=== PATIENT | male | born 1995 | race Caucasian/White ===

== ENCOUNTER 2024-05-24 17:41 | Observation (INO) | payer OTHER ==
[2024-05-24 18:40] LABS: Basophils # (A) 0.1 k/uL (0-0.2); Basophils % (A) 1 %; Eosinophils # (A) 0.1 k/uL (0-0.7); Eosinophils % (A) 1 %; HGB 14.7 gm/dL (13.0-17.5); Lymphocytes # (A) 1.5 k/uL (1.0-4.8); Lymphocytes % (A) 14 %; MCH 31.3 pg (25.0-35.0); MCHC 32.7 g/dL (31.0-37.0); MCV 95.6 fL (80.0-100.0); Mean Platelet Volume 8.1; Monocytes # (A) 1.2 k/uL (0-1.0); Monocytes % (A) 12 %; Neutrophils # (A) 7.2 k/uL (1.3-7.7); Neutrophils % (A) 71 %; Platelet Count 305 k/uL (150-450); RBC 4.71 m/uL (4.30-5.90); RDW 12.5 % (11.5-15.5); WBC 10.2 k/uL (3.8-10.6)
--- NOTE | 2024-05-24 18:47 | XR ---
EXAMINATION TYPE: XR chest 2V DATE OF EXAM: 05/24/2024 6:42 PM CLINICAL INDICATION:Male, 29 years old with history of Chest Pain; PHH COMPARISON: Chest radiographs from TECHNIQUE: XR chest 2V Frontal and lateral views of the chest. FINDINGS: EKG wires project over the chest. Lungs/Pleura: There is no evidence of pleural effusion, focal consolidation, or pneumothorax. Pulmonary vascularity: Unremarkable. Heart/mediastinum: Cardiomediastinal silhouette is unremarkable. Musculoskeletal: No acute osseous pathology. Other findings: None Lines/Tubes: IMPRESSION: No acute cardiopulmonary disease/process.
[2024-05-24 18:50] LABS: Amphetamine Screen,Urine Not Detected (NotDetected); Barbiturate Screen,Urine Not Detected (NotDetected); Benzodiazepines Screen,Urine Not Detected (NotDetected); Cocaine Screen,Urine Not Detected (NotDetected); Methadone Screen, Urine Not Detected (NotDetected); Opiate Screen,Urine Not Detected (NotDetected); Oxycodone Screen, Urine Not Detected (NotDetected); Phencyclidine Screen,Urine Not Detected (NotDetected); Tricyclic Antidepressant,Urine Not Detected (NotDetected); Urn Cannabinoid Scrn Not Detected (NotDetected)
[2024-05-24 18:56] LABS: INR 1.1 (<1.2); Prothrombin Time 11.5 sec (10.0-12.5)
[2024-05-24 19:13] LABS: ALT 16 U/L (4-49); AST 22 U/L (17-59); African American GFR (CKD) >90 (>60 ml/min/1.73 sqM); Albumin 4.6 g/dL (3.5-5.0); Alcohol <10 mg/dL; Alkaline Phosphatase 40 U/L (38-126); Anion Gap 7 mmol/L; Blood Urea Nitrogen 17 mg/dL (9-20); Calcium 9.4 mg/dL (8.4-10.2); Carbon Dioxide 24 mmol/L (22-30); Chloride 107 mmol/L (98-107); Creatine Kinase 69 U/L (55-170); Glucose 85 mg/dL (74-99); Lipase 76 U/L (23-300); Magnesium 1.9 mg/dL (1.6-2.3); Non-African American GFR(CKD) >90 (>60 ml/min/1.73 sqM); Potassium 4.1 mmol/L (3.5-5.1); Sodium 138 mmol/L (137-145); Total Bilirubin 0.5 mg/dL (0.2-1.3); Total Protein 6.9 g/dL (6.3-8.2)
--- NOTE | 2024-05-24 19:17 | ED ---
General Adult HPI - General Chief complaint: Alcohol Stated complaint: anxiety Time Seen by Provider: 05/24/24 18:12 Source: patient, EMS, RN notes reviewed Mode of arrival: EMS Limitations: no limitations - History of Present Illness Initial comments: 29-year-old male with a history of alcohol abuse as well as drug abuse but who states he has been off this for 3 months who states he started developing retrosternal left-sided chest pain and radiated down his left arm while he was at work today 8/10 severity could not really qualify by what it felt like he still acid little over 2 minutes. He also states that during this time he had voices in his head which she has had periodically since he came off the alcohol and drugs saying that he was having a heart attack he felt that this was in his head and in his chest. Of note there is a family history of an uncle that had a heart attack at the age of 30. He is feeling better now in the emergency department no other current complaints no other modifying factors - Related Data Allergies Allergy/AdvReac Type Severity Reaction Status Date / Time No Known Allergies Allergy Verified 05/24/24 17:59 Review of Systems ROS Statement: Those systems with pertinent positive or pertinent negative responses have been documented in the HPI. ROS Other: All systems not noted in ROS Statement are negative. Past Medical History Past Medical History: No Reported History History of Any Multi-Drug Resistant Organisms: None Reported Past Surgical History: Adenoidectomy Smoking Status: Current every day smoker, Vaper Past Alcohol Use History: Heavy Past Drug Use History: None Reported General Exam - General Exam Comments Initial Comments: Is a well-developed well-nourished awake alert oriented x 4 male Limitations: no limitations General appearance: alert, anxious Head exam: Present: atraumatic, normocephalic, normal inspection Eye exam: Present: normal appearance, PERRL, EOMI. Absent: scleral icterus, conjunctival injection, periorbital swelling ENT exam: Present: normal exam, mucous membranes moist Neck exam: Present: normal inspection, full ROM, other (Better JVD or bruits). Absent: tenderness, meningismus, lymphadenopathy Respiratory exam: Present: normal lung sounds bilaterally. Absent: respiratory distress, wheezes, rales, rhonchi, stridor Cardiovascular Exam: Present: regular rate, normal rhythm, normal heart sounds. Absent: systolic murmur, diastolic murmur, rubs, gallop, clicks GI/Abdominal exam: Present: soft, normal bowel sounds. Absent: distended, tenderness, guarding, rebound, rigid Extremities exam: Present: normal inspection, full ROM, normal capillary refill. Absent: tenderness, pedal edema, joint swelling, calf tenderness Back exam: Present: normal inspection Neurological exam: Present: alert, oriented X3, CN II-XII intact Psychiatric exam: Present: normal affect, normal mood Skin exam: Present: warm, dry, intact, normal color. Absent: rash Course Vital Signs 05/24/24 17:46 Temperature 98.3 F Pulse Rate 66 Respiratory 18 Rate Blood Pressure 124/88 O2 Sat by Pulse 98 Oximetry Medical Decision Making - Medical Decision Making I did reevaluate the patient several occasions he has had no further chest pain. He still having some voices "" in his head I did discuss the case with Dr. Finn the patient will be admitted with a rule out for cardiac disease and psychiatric evaluation in the a.m. Was pt. sent in by a medical professional or institution (, PA, LAST INSERTER, urgent care, hospital, or long-term...) When possible be specific @ -No Did you speak to anyone other than the patient for history (EMS, parent, family, police, friend...)? What history was obtained from this source @ -EMS personnel Did you review nursing and triage notes (agree or disagree)? Why? @ -I reviewed and agree with nursing and triage notes Were old charts reviewed (outside hosp., previous admission, EMS record, old EKG, old radiological studies, urgent care reports/EKG's, long-term records)? Report findings @ -No old charts were reviewed Differential Diagnosis (chest pain, altered mental status, abdominal pain women, abdominal pain men, vaginal bleeding, weakness, fever, dyspnea, syncope, headache, dizziness, GI bleed, back pain, seizure, CVA, palpatations, mental health, musculoskeletal)? @ -Pain, psychosis EKG interpreted by me (3pts min.). @ -As above EKG interpreted by me normal sinus rhythm at 62 ID interval 143 QRS duration 112 QT/QTc 388/394 possible right ventricular conduction delay X-rays interpreted by me (1pt min.). @ -Interpreted by me no evidence of acute processes CT interpreted by me (1pt min.). @ -None done U/S interpreted by me (1pt. min.). @ -None done What testing was considered but not performed or refused? (CT, X-rays, U/S, labs)? Why? @ -None What meds were considered but not given or refused? Why? @ -None Did you discuss the management of the patient with other professionals (professionals i.e. Dr., PA, LAST INSERTER, lab, RT, psych nurse, manager social responsibility, pediatric speech language pathologist, teacher, licensed loan officer assistant, heel caser)? Give summary @ -No Was smoking cessation discussed for >3mins.? @ -No Was critical care preformed (if so, how long)? @ -No Were there social determinants of health that impacted care today? How? (Homelessness, low income, unemployed, alcoholism, drug addiction, transportation, low edu. Level, literacy, decrease access to med. care, shelter, rehab)? @ -No Was there de-escalation of care discussed even if they declined (Discuss DNR or withdrawal of care, Hospice)? DNR status @ -No What co-morbidities impacted this encounter? (DM, HTN, Smoking, COPD, CAD, Cancer, CVA, ARF, Chemo, Hep., AIDS, mental health diagnosis, sleep apnea, morbid obesity)? @ -Alcohol and drug abuser, family history of heart disease at his age] Was patient admitted / discharged? Hospital course, mention meds given and route, prescriptions, significant lab abnormalities, going to OR and other pertinent info. @ -Hospital course was admitted to this facility for inpatient evaluation Undiagnosed new problem with uncertain prognosis? @ -No Drug Therapy requiring intensive monitoring for toxicity (Heparin, Nitro, Insulin, Cardizem)? @ -No Were any procedures done? @ -No Diagnosis/symptom? @ -Chest pain, psychosis Acute, or Chronic, or Acute on Chronic? @ -Acute Uncomplicated (without systemic symptoms) or Complicated (systemic symptoms)? @ -Default Side effects of treatment? @ -No Exacerbation, Progression, or Severe Exacerbation? @ -No Poses a threat to life or bodily function? How? (Chest pain, USA, ND, pneumonia, PE, COPD, DKA, ARF, appy, cholecystitis, CVA, Diverticulitis, Homicidal, Suicidal, threat to staff... and all critical care pts) @ -Chest pain - Lab Data Result diagrams: 07/27/24 18:12 05/24/24 18:12 Lab Results 05/24/24 05/24/24 05/24/24 Range/Units 18:12 18:12 18:12 WBC 10.2 (3.8-10.6) k/uL RBC 4.71 (4.30-5.90) m/uL Hgb 14.7 (13.0-17.5) gm/dL Hct 45.0 (39.0-53.0) % MCV 95.6 (80.0-100.0) fL MCH 31.3 (25.0-35.0) pg MCHC 32.7 (31.0-37.0) g/dL RDW 12.5 (11.5-15.5) % Plt Count 305 (150-450) k/uL MPV 8.1 Neutrophils % 71 % Lymphocytes % 14 % Monocytes % 12 % Eosinophils % 1 % Basophils % 1 % Neutrophils # 7.2 (1.3-7.7) k/uL Lymphocytes # 1.5 (1.0-4.8) k/uL Monocytes # 1.2 H (0-1.0) k/uL Eosinophils # 0.1 (0-0.7) k/uL Basophils # 0.1 (0-0.2) k/uL PT 11.5 (10.0-12.5) sec INR 1.1 (<1.2) APTT 26.0 (22.0-30.0) sec D-Dimer 0.22 (<0.60) mg/L FEU Sodium (137-145) mmol/L Potassium (3.5-5.1) mmol/L Chloride (98-107) mmol/L Carbon Dioxide (22-30) mmol/L Anion Gap mmol/L BUN (9-20) mg/dL Creatinine (0.66-1.25) mg/dL Est GFR (CKD-EPI)AfAm (>60 ml/min/1.73 sqM) Est GFR (CKD-EPI)NonAf (>60 ml/min/1.73 sqM) Glucose (74-99) mg/dL Calcium (8.4-10.2) mg/dL Magnesium (1.6-2.3) mg/dL Total Bilirubin (0.2-1.3) mg/dL AST (17-59) U/L ALT (4-49) U/L Alkaline Phosphatase (38-126) U/L Ammonia (<30) umol/L Creatine Kinase (55-170) U/L Troponin I (0.000-0.034) ng/mL NT-Pro-B Natriuret Pep pg/mL Total Protein (6.3-8.2) g/dL Albumin (3.5-5.0) g/dL Lipase (23-300) U/L TSH (0.465-4.680) mIU/L Urine Opiates Screen Not Detected (NotDetected) Ur Oxycodone Screen Not Detected (NotDetected) Urine Methadone Screen Not Detected (NotDetected) Ur Barbiturates Screen Not Detected (NotDetected) U Tricyclic Antidepress Not Detected (NotDetected) Ur Phencyclidine Scrn Not Detected (NotDetected) Ur Amphetamines Screen Not Detected (NotDetected) U Methamphetamines Scrn Not Detected (NotDetected) U Benzodiazepines Scrn Not Detected (NotDetected) Urine Cocaine Screen Not Detected (NotDetected) U Marijuana (THC) Screen Not Detected (NotDetected) Serum Alcohol mg/dL 05/24/24 05/24/24 05/24/24 Range/Units 18:12 18:12 18:12 WBC (3.8-10.6) k/uL RBC (4.30-5.90) m/uL Hgb (13.0-17.5) gm/dL Hct (39.0-53.0) % MCV (80.0-100.0) fL MCH (25.0-35.0) pg MCHC (31.0-37.0) g/dL RDW (11.5-15.5) % Plt Count (150-450) k/uL MPV Neutrophils % % Lymphocytes % % Monocytes % % Eosinophils % % Basophils % % Neutrophils # (1.3-7.7) k/uL Lymphocytes # (1.0-4.8) k/uL Monocytes # (0-1.0) k/uL Eosinophils # (0-0.7) k/uL Basophils # (0-0.2) k/uL PT (10.0-12.5) sec INR (<1.2) APTT (22.0-30.0) sec D-Dimer (<0.60) mg/L FEU Sodium 138 (137-145) mmol/L Potassium 4.1 (3.5-5.1) mmol/L Chloride 107 (98-107) mmol/L Carbon Dioxide 24 (22-30) mmol/L Anion Gap 7 mmol/L BUN 17 (9-20) mg/dL Creatinine 0.75 (0.66-1.25) mg/dL Est GFR (CKD-EPI)AfAm >90 (>60 ml/min/1.73 sqM) Est GFR (CKD-EPI)NonAf >90 (>60 ml/min/1.73 sqM) Glucose 85 (74-99) mg/dL Calcium 9.4 (8.4-10.2) mg/dL Magnesium 1.9 (1.6-2.3) mg/dL Total Bilirubin 0.5 (0.2-1.3) mg/dL AST 22 (17-59) U/L ALT 16 (4-49) U/L Alkaline Phosphatase 40 (38-126) U/L Ammonia <9 (<30) umol/L Creatine Kinase 69 (55-170) U/L Troponin I <0.012 (0.000-0.034) ng/mL NT-Pro-B Natriuret Pep <20 pg/mL Total Protein 6.9 (6.3-8.2) g/dL Albumin 4.6 (3.5-5.0) g/dL Lipase 76 (23-300) U/L TSH 1.230 (0.465-4.680) mIU/L Urine Opiates Screen (NotDetected) Ur Oxycodone Screen (NotDetected) Urine Methadone Screen (NotDetected) Ur Barbiturates Screen (NotDetected) U Tricyclic Antidepress (NotDetected) Ur Phencyclidine Scrn (NotDetected) Ur Amphetamines Screen (NotDetected) U Methamphetamines Scrn (NotDetected) U Benzodiazepines Scrn (NotDetected) Urine Cocaine Screen (NotDetected) U Marijuana (THC) Screen (NotDetected) Serum Alcohol <10 mg/dL Disposition Clinical Impression: Chest pain, Psychoses Disposition: ADMITTED IP TO THIS HOSP Condition: Stable Referrals: None,Stated [Primary Care Provider] - 1-2 days Time of Disposition: 20:58 Decision Date: 05/24/24 Decision Time: 20:58
[2024-05-24 19:21] LABS: NT-Pro-B-Type Natriuretic Pept <20 pg/mL
[2024-05-24] MEDS ORDERED: NALOXONE 0.4 MG/ML 1 ML VIAL IV PRN (20:58)
[2024-05-24] MEDS ORDERED: LORazepam 2 MG/ML INJ IV PRN ×3 (21:22)
[2024-05-25] MEDS ORDERED: ACETAMINOPHEN TAB 325 MG TAB PO PRN (01:10)
[2024-05-25] MEDS: ACETAMINOPHEN TAB 325 MG TAB PO PRN (01:16)
--- NOTE | 2024-05-25 03:02 | P.HPIM ---
History of Present Illness H&P Date: 05/24/24 Patient is a 29-year-old male with a PMH of polysubstance and alcohol abuse who presents to the emergency room with complaints of chest discomfort, anxiety, and hallucinations. The patient reports that he was abusing methamphetamines, marijuana, and drinking excessively for several years and decided to get sober roughly 3 months ago. He has since moved in with his father and notes that he has gradually cut down from drinking a 12 pack of beer daily down to only 1 beer per night. He also reports not having used any hard substances such as methamphetamines for at least the past 3 months. Notes that ever since he decided to get clean, that he has been experiencing this gradually worsening a nxiety and has also developed auditory and some visual hallucinations. The patient endorses people having conversations and also speaking to him, telling him to do specific things and also at times telling him to harm himself. 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 He reports that the discomfort lasted only for few minutes and then resolved completely and he feels at his baseline at the time of interview. Patient denies any history of alcohol withdrawals and reports that his last drink was last night which was a single beer. Also reports associated lightheadedness at the time of the episode with some nausea without vomiting. Denies fever, chills, cough, abdominal pain, diarrhea. Patient specifically denied suicidal ideation but states that the voices have been telling him to harm himself. EKG in the emergency room revealed sinus rhythm at [address]/T wave changes noted as reviewed by me. Chest x-ray was unremarkable. Laboratory evaluation revealed troponin less than 0.012, proBNP less than 20, urine toxicology unremarkable, with WBC count 10.2 and hemoglobin 14.7. ED documentation reviewed and case discussed with ED provider. Review of systems: Pertinent positives and negatives as discussed in HPI, a complete review of systems was performed and all other systems are negative. Physical examination: Vital signs reviewed General: non toxic, no distress, appears at stated age, normal weight Derm: no unusual rashes/lesions, warm Head: atraumatic, normocephalic, symmetric Eyes: EOMI, no lid lag, anicteric sclera, pupils equal round reactive to light ENT: Nose and ears atraumatic Neck: No cervical lymphadenopathy, trachea midline, supple Mouth: no lip lesion, mucus membranes moist Cardiovascular: S1S2 reg, no murmur, positive dorsalis pedis pulse bilateral, no edema Lungs: CTA bilateral, no rhonchi, no rales, no accessory muscle use Abdominal: soft, nontender to palpation, no guarding Ext: muscle strength 5 out of 5 in all 4 extremities grossly, no gross muscle atrophy, no contractures, Neuro: CN II-XI grossly intact, no gross focal neuro deficits Psych: Alert, oriented, appropriate affect Assessment: Atypical chest pain, suspect due to anxiety Auditory and visual hallucinations History of polysubstance abuse including methamphetamines and alcohol Imaging: EKG in the emergency room revealed sinus rhythm at [address]/T wave changes noted as reviewed by me. Chest x-ray was unremarkable. Data Review: Laboratory evaluation revealed troponin less than 0.012, proBNP less than 20, urine toxicology unremarkable, with WBC count 10.2 and hemoglobin 14.7. Plan: Psychiatry consulted Cardiac monitoring Trend troponin CIWA protocol for now DVT prophylaxis: Lovenox Subq The patient is admitted with an anticipated [] than 2 midnight stay for eval uation of [] CODE STATUS: Full Code Discussed with: Patient Anticipated discharge place: Home Past Medical History Past Medical History: No Reported History History of Any Multi-Drug Resistant Organisms: None Reported Past Surgical History: Adenoidectomy Smoking Status: Current some day smoker - Past Family History Father Additional Family Medical History / Comment(s): anxiety Mother Family Medical History: Asthma Additional Family Medical History / Comment(s): RLS Sister(s) Additional Family Medical History / Comment(s): has 3 sisters one sister age 25 hx bipolar, add Medications and Allergies Allergies Allergy/AdvReac Type Severity Reaction Status Date / Time No Known Allergies Allergy Verified 05/24/24 17:59 Physical Exam Vitals: Vital Signs Temp Pulse Pulse Resp BP BP Pulse Ox 05/24/24 23:35 97.9 F 54 L 16 113/76 97 05/24/24 23:11 98.4 F 57 L 16 114/78 97 05/24/24 22:00 59 L 17 105/93 96 05/24/24 21:00 57 L 16 118/80 98 05/24/24 17:46 98.3 F 66 18 124/88 98 Intake and Output 05/24/24 05/24/24 05/25/24 14:59 22:59 06:59 Intake Total 120 Balance 120 Intake: Oral 120 Other: # Voids 1 Weight 73.028 kg 73.028 kg Results CBC & Chem 7: 05/24/24 18:12 05/24/24 18:12 Labs: Abnormal Lab Results - Last 24 Hours (Table) 05/24/24 Range/Units 18:12 Monocytes # 1.2 H (0-1.0) k/uL
[2024-05-25] MEDS: ENOXAPARIN 40 MG/0.4 ML SYRINGE SQ SCH (08:39)
--- NOTE | 2024-05-25 14:14 | P.PN ---
Subjective Progress Note Date: 05/25/24 Hospital course Patient is a 29-year-old male with a PMH of polysubstance and alcohol abuse who presents to the emergency room with complaints of chest discomfort, anxiety, and hallucinations. The patient reports that he was abusing methamphetamines, marijuana, and drinking excessively for several years and decided to get sober roughly 3 months ago. He has since moved in with his father and notes that he has gradually cut down from drinking a 12 pack of beer daily down to only 1 beer per night. He also reports not having used any hard substances such as methamphetamines for at least the past 3 months. Notes that ever since he decided to get clean, that he has been experiencing this gradually worsening anxiety and has also developed auditory and some visual hallucinations. The patient endorses people having conversations and also speaking to him, telling him to do specific things and also at times telling him to harm himself. 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 He reports that the discomfort lasted only for few minutes and then resolved completely and he feels at his baseline at the time of interview. Patient denies any history of alcohol withdrawals and reports that his last drink was last night which was a single beer. Also reports associated lightheadedness at the time of the episode with some nausea without vomiting. Denies fever, chills, cough, abdominal pain, diarrhea. Patient specifically denied suicidal ideation but states that the voices have been telling him to harm himself. EKG in the emergency room revealed sinus rhythm at [address]/T wave changes noted as reviewed by me. Chest x-ray was unremarkable. Laboratory evaluation revealed troponin less than 0.012, proBNP less than 20, urine toxicology unremarkable, with WBC count 10.2 and hemoglobin 14.7. Subjective Patient seen this morning. 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 Psych - Calm and cooperative Assessment and plan Atypical chest pain Suspect due to anxiety Psych consult Auditory and visual hallucinations Psych consult History of polysubstance abuse and alcohol abuse Patient states that he quit doing drugs about a month ago and has been cutting down on his alcohol and now only drinks 1 beer a day CIWA protocol UDS was negative DVT prophylaxis: Lovenox Objective - Vital Signs Vital signs: Vital Signs Temp 98.2 F 05/25/24 07:00 Pulse 79 05/25/24 07:00 Resp 18 05/25/24 07:00 BP 92/58 05/25/24 07:00 Pulse Ox 98 05/25/24 07:00 FiO2 Intake & Output 05/24/24 05/25/24 05/25/24 18:59 06:59 18:59 Intake Total 360 Output Total 1 Balance 359 Weight 73.028 kg 73.028 kg Intake: Oral 360 Output: Urine 1 Other: # Voids 1 - Labs CBC & Chem 7: 05/24/24 18:12 05/24/24 18:12 Labs: Abnormal Lab Results - Last 24 Hours (Table) 05/24/24 Range/Units 18:12 Monocytes # 1.2 H (0-1.0) k/uL
[2024-05-25 14:43] VITALS: BP 110/75; PULSE 55; RESP 16; TEMP 98.1
--- NOTE | 2024-05-25 15:20 | P.DS ---
Providers Date of admission: 05/24/24 20:58 Attending physician: Ashleigh Finn MD Consults: 05/24/24 20:58 Consult Physician Routine Consulting Provider: Mitchell Lebron Consult Reason/Comments: Hearing voices Do you want consulting provider notified?: Yes, Notify in am Primary care physician: Stated None Hospital Course: Hospital course Patient is a 29-year-old male with a PMH of polysubstance and alcohol abuse who presents to the emergency room with complaints of chest discomfort, anxiety, and hallucinations. The patient reports that he was abusing methamphetamines, mar ijuana, and drinking excessively for several years and decided to get sober roughly 3 months ago. He has since moved in with his father and notes that he has gradually cut down from drinking a 12 pack of beer daily down to only 1 beer per night. He also reports not having used any hard substances such as methamphetamines for at least the past 3 months. Notes that ever since he decided to get clean, that he has been experiencing this gradually worsening anxiety and has also developed auditory and some visual hallucinations. The patient endorses people having conversations and also speaking to him, telling him to do specific things and also at times telling him to harm himself. 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 He reports that the discomfort lasted only for few minutes and then resolved completely and he feels at his baseline at the time of interview. Patient denies any history of alcohol withdrawals and reports that his last drink was last night which was a single beer. Also reports associated lightheadedness at the time of the episode with some nausea without vomiting. Denies fever, chills, cough, abdominal pain, diarrhea. Patient specifically denied suicidal ideation but states that the voices have been telling him to harm himself. EKG in the emergency room revealed sinus rhythm at [address]/T wave changes noted as reviewed by me. Chest x-ray was unremarkable. Laboratory evaluation revealed troponin less than 0.012, proBNP less than 20, urine toxicology unremarkable, with WBC count 10.2 and hemoglobin 14.7. The following day patient was seen by psychiatry who recommended U. Patient medically stable for discharge to [facility]. 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 Psych - Calm and cooperative Discharge diagnosis Atypical chest pain likely due to anxiety Auditory and visual hallucination History of polysubstance abuse and alcohol abuse I spent a total of 33 minutes with this discharge Patient Condition at Discharge: Stable Plan - Discharge Summary New Discharge Prescriptions: Continue Nicotine 21Mg/24Hr Patch [Habitrol] 1 patch TRANSDERM DAILY Discharge Medication List Nicotine 21Mg/24Hr Patch [Habitrol] 1 patch TRANSDERM DAILY 05/25/24 [History] Follow up Appointment(s)/Referral(s): None,Stated [Primary Care Provider] - 1-2 days Discharge Disposition: TRANSFER TO PSYCH HOSP/UNIT
--- NOTE | 2024-05-25 15:35 | P.CN ---
Psychiatric Consult - . Consult date: 05/25/24 Consult:: 05/25/24 15:22 IDENTIFYING DATA: This patient is a 29-year-old male REASON FOR REFERRAL: Psychiatry was consulted for auditory hallucination HISTORY OF PRESENT ILLNESS: The patient presented to the hospital due to chest pain. Patient states that he has been sober of numerous substances over the past few months. He stopped using methamphetamine 3 months ago, stopped using cannabis 1 week ago, and decreased alcohol consumption to one to 2 beer daily. He states that he has been feeling depressed and anxiety over the past 3 months. He also reports having auditory hallucinations over the past 2 months that are very bothersome and frequently disturb him from his train of thought. He states that he has also experienced command auditory hallucinations telling him to hurt himself. He states that the voices are causing him to have "rage of not knowing what to do?. He denies homicidal ideation. However he expresses that hearing the voices has caused him to have suicidal ideation without a plan. He also reports visual hallucinations of floaty's in front of him. He endorses paranoia and feels unsafe at times. He denies symptoms consistent with turner. Due to ongoing auditory hallucinations, patient reports difficulty with sustained sleep. She reports low energy during the daytime but fair appetite. PAST PSYCHIATRIC HISTORY: Patient does not have any psychiatric history and has never been hospitalized. He does not have any current outpatient mental health provider. He denies any history of suicide attempts. He denies ever having tried any psychotropic medications. PAST MEDICAL HISTORY: Past Medical History: No Reported History History of Any Multi-Drug Resistant Organisms: None Reported Past Surgical History: Adenoidectomy Smoking Status: Current some day smoker ALLERGIES: as per EMR. CHEMICAL DEPENDENCY HISTORY: Methamphetamine: Started with using 1 g per week. Has progressed to using eightball every 1-2 weeks for 3-6 months. Quit 3 months ago. Cannabis: Reports using 1/8 every few days and that he used to use 1 g per week. He states he tried using again 1 week ago. He reports having used since he was 14 years old. Alcohol: He was using 12-18 pack of beer daily. Has decreased his consumption to one to 2 beer daily recently. He states that he has never been to rehab. Does not attend Alcoholics Anonymous. FAMILY PSYCHIATRIC/SUBSTANCE USE HISTORY: Uncle with paranoid schizophrenia. Denies any family history of suicide attempts SOCIAL HISTORY: Patient is currently residing with his father. He states that he had a baby girl born in October who is living with the mother of the child. He states that the mother of the child (girlfriend) broke up with him 2 months ago. He also works for [employer]. MENTAL STATUS EXAM: General Appearance: Patient appears to be stated age is alert, pleasant, and cooperative. Patient appears to have poor hygiene and grooming wearing hospital gown with fair eye contact. Behavior: Patient is calmly lying in bed without any agitated behavior. Speech: Patient's speech is fluent and nonpressured. Mood/Affect: Patient reports their mood is "depressed", affect is congruent Suicidality/Homicidality: Patient denies homicidal ideation intent or plan. Suicidal ideation without a plan Perceptions: Patient denies any visual hallucinations and endorses auditory hallucinations Though content/process: There is no evidence of any delusional thought content and thought process is linear and goal-directed. Memory and concentration: AOX3, grossly intact for the purposes of this session. 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 Patient was agreeable with this. -Would recommend the following medication changes/additions: Start Seroquel 50 mg qHS for psychosis and mood -CIWA protocol with PRN Ativan for alcohol withdrawal per primary team. Continue to monitor vital signs. -Needs 1:1 sitter for safety -Cannot leave AMA at this time. Patient will need a petition and certification if attempting to leave AMA. -Metal Shaping Machine Operator spoke with patient about substance abuse and the harmful effects on medical and mental health, patient verbally understood and agreed. -When medically stable, patient is eligible for transfer to a psych bed when available. -Communicated plan to patient's nurse -Psychiatry will sign off at this time -Please contact with any questions.
[2024-05-25] MEDS ORDERED: QUEtiapine 50 MG TAB PO SCH (21:00)
== END 2024-05-25 18:05 ==
LOC: EC 17:41 → 6NMEDSUR 20:58
PROVIDERS: ADMIT Internal Medicine; ATTEND Internal Medicine
DX: R07.89 Other chest pain (principal); F29 Unspecified psychosis not due to a substance or known physiological condition; R45.851 Suicidal ideations; F41.9 Anxiety disorder, unspecified; F10.10 Alcohol abuse, uncomplicated; F12.10 Cannabis abuse, uncomplicated; F15.21 Other stimulant dependence, in remission; M79.602 Pain in left arm; R11.0 Nausea; R42 Dizziness and giddiness; F32.A Depression, unspecified; F17.290 Nicotine dependence, other tobacco product, uncomplicated; Z82.49 Family history of ischemic heart disease and other diseases of the circulatory system
CPT/HCPCS: 96372; 99285; 36415; 93005; 85379; 83880; 80053; 84443; 82140; 82550; 83690; 83735; 84484; 85025; 85610; 85730; 80306; 80320; 87635; 71046; G0378 ×2; J1650

== ENCOUNTER 2024-05-25 16:57 | Inpatient (IN) | payer OTHER ==
[2024-05-25] MEDS ORDERED: MAG HYDROX/AL HYDROX/SIMETH 355 ML BOTTLE PO PRN (18:38)
[2024-05-25] MEDS ORDERED: MAGNESIUM HYDROXIDE 2,400 MG/30 ML CUP PO PRN (18:38)
[2024-05-25] MEDS: QUEtiapine 50 MG TAB PO SCH (21:05)
[2024-05-25] MEDS: ACETAMINOPHEN TAB 325 MG TAB PO PRN (21:07)
[2024-05-25] MEDS: LORazepam 1 MG TAB PO PRN (21:10)
[2024-05-26] MEDS: NICOTINE 21MG/24HR PATCH TRANSDERM SCH (08:50)
[2024-05-26] MEDS: THIAMINE 100 MG TAB PO SCH (08:51)
[2024-05-26] MEDS: FOLIC ACID 1 MG TAB PO SCH (08:51)
[2024-05-26] MEDS: MULTIVITAMINS, THERA 1 EACH TAB PO SCH (08:51)
--- NOTE | 2024-05-26 09:51 | P.HP ---
Psychiatric H&P - . H&P Date: 05/26/24 History & Physical: Allergies Allergy/AdvReac Type Severity Reaction Status Date / Time No Known Allergies Allergy Verified 05/24/24 17:59 Vital Signs Temp 98.6 F 05/26/24 06:43 Pulse 48 L 05/26/24 06:43 Resp 16 05/26/24 06:43 BP 101/65 05/26/24 06:43 Pulse Ox 96 05/26/24 06:43 FiO2 Intake & Output 05/25/24 05/26/24 05/26/24 18:59 06:59 18:59 Weight 72.1 kg 05/26/24 09:50 Psychiatric Evaluation IDENTIFYING DATA: This patient is a 29-year-old male, who lives in [place], [place] with his father. HISTORY OF PRESENT ILLNESS: The patient presented to the hospital due to chest pain. Patient states that he has been sober of numerous substances over the past few months. He stopped using methamphetamine 3 months ago, stopped using cannabis 1 week ago, and decreased alcohol consumption to one to 2 beer daily. He states that he has been feeling depressed and anxiety over the past 3 months. He also reports having auditory hallucinations over the past 2 months that are very bothersome and frequently disturb him from his train of thought. He states that he has also experienced command auditory hallucinations telling him to hurt himself. He states that the voices are causing him to have "rage of not knowing what to do?. He denies homicidal ideation. However he expresses that hearing the voices has caused him to have suicidal ideation without a plan. He also re ports visual hallucinations of floaty's in front of him. He endorses paranoia and feels unsafe at times. He denies symptoms consistent with turner. Due to ongoing auditory hallucinations, patient reports difficulty with sustained sleep. She reports low energy during the daytime but fair appetite. PAST PSYCHIATRIC HISTORY: Patient does not have any psychiatric history and has never been hospitalized. He does not have any current outpatient mental health provider. He denies any history of suicide attempts. He denies ever having tried any psychotropic medications. Past Medical History: None significant. Drug and Alcohol abuse: Methamphetamine: Started with using 1 g per week. Has progressed to using eightball every 1-2 weeks for 3-6 months. Quit 3 months ago. Cannabis: Reports using 1/8 every few days and that he used to use 1 g per week. He states he tried using again 1 week ago. He reports having used since he was 14 years old. Alcohol: He was using 12-18 pack of beer daily. Has decreased his consumption to one to 2 beers daily recently. Family History Of Psychiatric disorder: Uncle with paranoid schizophrenia. Denies any family history of suicide attempts SOCIAL HISTORY: Patient is currently residing with his father. He states that he had a baby girl born in October who is living with the mother of the child. He states that the mother of the child (girlfriend) broke up with him 2 months ago. He also works for [employer]. MENTAL STATUS EXAM: General Appearance: Patient appears to be stated age is alert, pleasant, and cooperative. Patient appears to have poor hygiene and grooming wearing hospital gown with fair eye contact. Behavior: Patient is calmly lying in bed without any agitated behavior. Speech: Patient's speech is fluent and nonpressured. Mood/Affect: Patient reports their mood is "depressed", affect is congruent Suicidality/Homicidality: Patient denies homicidal ideation intent or plan. Suicidal ideation without a plan Perceptions: Patient denies any visual hallucinations and endorses auditory hallucinations Though content/process: There is no evidence of any delusional thought content and thought process is linear and goal-directed. Memory and concentration: AOX3, grossly intact for the purposes of this session. Can spell "WORLD" backwards Judgment and insight: Good. OTC: None Allergies: As per EMR. Diagnosis: Psychotic disorder, unspecified. R/O first episode of Schizophrenia Alcohol use disorder, severe Cannabis use disorder Stimulant use disorder, severe, in early remission Plan and Recommendations: Continue current Medications. Add Librium 25 mg po tid. Monitor MS and side effects of medications and adjust medications accordingly. Provide supportive psychotherapy. The patient provided psychoeducation and advised The patient provided Substance abuse counseling. Smoke cessation therapy. The patient to attend ambriz activities. Lipid Profile, HbA1c. Medication Consent with explanation of risk/benefits and side effects: Explained and obtained.
[2024-05-26 10:26] LABS: Chol/HDL Ratio 5.13 Ratio; LDL Cholesterol,Calculated 151.6 mg/dL (0.0-131.0); VLDL Calculation 19.14 mg/dL (5.00-40.00)
[2024-05-26] MEDS: chlordiazePOXIDE 25 MG CAP PO SCH (16:02)
[2024-05-26] MEDS: LORazepam 1 MG TAB PO PRN (21:08)
--- NOTE | 2024-05-27 02:58 | P.CONS ---
History of Present Illness - Reason for Consult Consult date: 05/27/24 - History of Present Illness The patient is a 29-year-old male with a PMH of polysubstance abuse who had initially presented to the emergency room with complaints of anxiety and chest discomfort. The patient was admitted to rule out ACS and was subsequently transferred to the mental health unit where he was seen and evaluated. Patient reports that he feels well and had no active complaints aside from a mild headache at the time of interview. Denied experiencing fever, chills, cough, nausea, vomiting, abdominal pain, diarrhea, chest pain, shortness of breath. Review of systems: Pertinent positives and negatives as discussed in HPI, a complete review of systems was performed and all other systems are negative. Physical examination: General: non toxic, no distress, appears at stated age, normal weight Derm: no unusual rashes/lesions, no unusual ecchymoses, warm, dry Head: atraumatic, normocephalic, symmetric Eyes: EOMI, no lid lag, anicteric sclera ENT: Nose and ears atraumatic, no thrush, no pharyngeal erythema Neck: trachea midline, supple Mouth: no lip lesion, mucus membranes moist Cardiovascular: S1S2 reg, no murmur, no edema Lungs: CTA bilateral, no rhonchi, no rales , no accessory muscle use Abdominal: soft, nontender to palpation, no guarding Ext: no gross muscle atrophy, no contractures, Neuro: No gross focal neuro deficits noted Psych: Alert, oriented, appropriate affect Assessment: Polysubstance abuse Anxiety and hallucinations Plan: Advised on the ongoing importance of cessation Defer management of anxiety to primary psychiatry service Thank you for allowing us to participate in the care of this patient. We will follow peripherally. Do not hesitate to contact us with questions. Someone can be reached from the [facility] hospitalist group at all hours of the day at [phone]. Past Medical History Past Medical History: No Reported History Additional Past Medical History / Comment(s): sports induced asthma as teenager History of Any Multi-Drug Resistant Organisms: None Reported Past Surgical History: Adenoidectomy Past Anesthesia/Blood Transfusion Reactions: No Reported Reaction Smoking Status: Current some day smoker - Past Family History Father Additional Family Medical History / Comment(s): anxiety Mother Family Medical History: Asthma Additional Family Medical History / Comment(s): RLS Sister(s) Additional Family Medical History / Comment(s): has 3 sisters one sister age 25 hx bipolar, add Medications and Allergies Home Medications Medication Instructions Recorded Confirmed Type Nicotine 21Mg/24Hr Patch [Habitrol] 1 patch TRANSDERM DAILY 05/25/24 05/25/24 History Allergies Allergy/AdvReac Type Severity Reaction Status Date / Time No Known Allergies Allergy Verified 05/24/24 17:59 Physical Exam Vitals: Vital Signs Temp Pulse Resp BP Pulse Ox 05/26/24 21:05 83 18 113/77 97 05/26/24 06:43 98.6 F 48 L 16 101/65 96 Results Labs: Abnormal Lab Results - Last 24 Hours (Table) 05/25/24 Range/Units 06:00 Cholesterol 212.00 H (0.00-200.00) mg/dL LDL Cholesterol, Calc 151.6 H (0.0-131.0) mg/dL
[2024-05-27] MEDS: IBUPROFEN 600 MG TAB PO PRN (08:48)
--- NOTE | 2024-05-27 12:47 | P.PN ---
Progress Note - Text Progress Note Date: 05/27/24 Follow-up Mediation Review Chief Complaint: non stop voices in my head. Subjective: The patient noted that he has been having non stop voices in his head for past couple of months. He believes this stopped after quitting alcohol and methamphetamines. The patient noted that he was drinking a lot of alcohol and doing methamphetamine. He was abusing alcohol since October of 2021 and methamphetamine for 6 months. The patient has had bouts of drinking since age 19. He has one DUI. He noted having blackouts, mild shakes in the past. No h/o of dts, withdrawal seizures or rehabs. He has never had these voices before. He has no psychiatric history. The patient has been attending the groups. The participation is good. The interaction with staff and peers is good. The patient is compliant with treatment recommendations. Leading questions: The patient admitted to Depression and Anxiety. Denied SI or HI. Admitted to hearing voices and seeing floaters. Denied paranoia or other delusions. Sleep and Appetite: Fair. Change in family/ living/job/financial/daily routine: No change. Change in medical condition: No change. Change in medications: Added Librium 25 mg po tid. Side effects from Medications: None. Allergies: No change. Objective- MSE: Alert and attentive. Orientation times three. Dressed and Groomed: Appropriately. Pleasant and cooperative. Psychomotor Activity: Normal. Speech: Normal in tone, quality, and quantity. Mood: Depressed and anxious. Affect: Appropriate to the mood. SI or HI: None. Perceptual disturbance: He hears several voices. The voices talk amongst themselves. Denied command hallucinations. Thought Content: No paranoia or other delusional thinking noted. Thought Process: Normal. Cognition: Intact Judgment and Insight: Fair. AIMS: Normal. Labs: Available labs reviewed. Diagnosis: Psychosis, NOS Plan and Recommendations: Continue current Medications. Decrease Librium 25 mg po bid. Decrease Seroquel to 25 mg po hs. Monitor MS and side effects of medications and adjust medications accordingly. Provide supportive psychotherapy. The patient provided psychoeducation and advised The patient provided Substance abuse counseling. Smoke cessation therapy. The patient to attend ambriz activities. Lipid Profile, HbA1c, Medication Consent with explanation of risk/benefits and side effects: Explained and obtained.
[2024-05-27] MEDS: chlordiazePOXIDE 25 MG CAP PO SCH (21:20)
[2024-05-27] MEDS: QUEtiapine 25 MG TAB PO SCH (21:21)
[2024-05-27] MEDS: OLANZapine 5 MG TAB PO ONE (22:46)
--- NOTE | 2024-05-28 12:37 | P.PN ---
Progress Note - Text Progress Note Date: 05/28/24 Follow-up Mediation Review Chief Complaint: I am a little better. Subjective: The patient noted that he is hearing voices less frequently than before. He feels that the intensity and frequency has gone down. The patient did complain of feeling tired. He is noted to be more alert and has been visible on the unit. The patient was calm and pleasant. No other complain reported. The patient denied any side effects except feeling tired. His Librium is being reduced to 25 at bedtime. The patient has been compliant with medications. The patient is attending some of the groups. The participation is limited. The interaction with staff and peers is fair. The patient is partially compliant with treatment recommendations. Leading questions: The patient admitted to mild Depression and Anxiety. Denied SI or HI. Admitted to hearing voices and seeing floaters. Denied paranoia or other delusions. Sleep and Appetite: Fair. Change in family/ living/job/financial/daily routine: No change. Change in medical condition: No change. Change in medications: Added Librium 25 mg qhs. Side effects from Medications: None. Allergies: No change. Objective- MSE: Alert and attentive. Orientation times three. Dressed and Groomed: Appropriately. Pleasant and cooperative. Psychomotor Activity: Normal. Speech: Normal in tone, quality, and quantity. Mood: Depressed and anxious. Affect: Appropriate to the mood. SI or HI: None. Perceptual disturbance: He hears several voices. The voices talk amongst themselves. Denied command hallucinations. Thought Content: No paranoia or other delusional thinking noted. Thought Process: Normal. Cognition: Intact Judgment and Insight: Fair. AIMS: Normal. Labs: Available labs reviewed. Diagnosis: Psychosis, NOS Plan and Recommendations: Continue current Medications. Decrease Librium 25 mg po qhs. Monitor MS and side effects of medications and adjust medications accordingly. Provide supportive psychotherapy. The patient provided psychoeducation and advised The patient provided Substance abuse counseling. Smoke cessation therapy. The patient to attend ambriz activities. Lipid Profile, HbA1c, Medication Consent with explanation of risk/benefits and side effects: Explained and obtained.
[2024-05-28] MEDS: chlordiazePOXIDE 25 MG CAP PO SCH (21:19)
[2024-05-28] MEDS: MELATONIN 5 MG TABLET PO PRN (23:19)
--- NOTE | 2024-05-29 13:45 | P.PN ---
Progress Note - Text Progress Note Date: 05/29/24 Follow-up Mediation Review Chief Complaint: I am a little better. Subjective: The patient noted that the voices were not there in the morning and then after the groups, he was brushing teeth, when the voices came back. He started hearing voices. He stated the voices were behind his back. The voices were mocking him for coming here. They were talking amongst themselves saying, monalisa Taveras had to come here, in a mocking manner. This made his anxious. He also felt tightness in the chest and back of the left forearm. These are no command hallucinations. He went to the front end ui developer and took Ativan. He had no other complain. The patient expressed interest in taking medications to subdue the voices. Discussed antipsychotic medications. Explained the risk/benefits and side effects, the patient agreed and consented for Risperdal. medications is hearing voices less frequently than before. The patient was calm and pleasant. No other complaints reported. The patient denied any side effects except feeling tired. His Librium is being reduced to 25 at bedtime. The patient has been compliant with medications. The patient is attending the groups. The participation is good. The interaction with staff and peers is good. The patient is compliant with treatment recommendations. Leading questions: The patient admitted to mild Depression and Anxiety. Denied SI or HI. Admitted to hearing voices and seeing floaters. Denied paranoia or other delusions. Sleep and Appetite: Fair. Change in family/ living/job/financial/daily routine: No change. Change in medical condition: No change. Change in medications: Added Risperdal 0.5 mg hs. Melatonin 5 mg po hs. D/C Seroquel. Trazodone 50 mg hs. Side effects from Medications: None. Allergies: No change. Objective- MSE: Alert and attentive. Orientation times three. Dressed and Groomed: Appropriately. Pleasant and cooperative. Psychomotor Activity: Normal. Speech: Normal in tone, quality, and quantity. Mood: Depressed and anxious. Affect: Appropriate to the mood. SI or HI: None. Perceptual disturbance: He hears several voices. The voices talk amongst themselves. Denied command hallucinations. Thought Content: No paranoia or other delusional thinking noted. Thought Process: Normal. Cognition: Intact Judgment and Insight: Fair. AIMS: Normal. Labs: Available labs reviewed. Diagnosis: Schizophreniform disorder Plan and Recommendations: Continue current Medications. Added Risperdal 0.5 mg hs. Melatonin 5 mg po hs. D/C Seroquel. Trazodone 50 mg hs. Monitor MS and side effects of medications and adjust medications accordingly. Provide supportive psychotherapy. The patient provided psychoeducation and advised The patient provided Substance abuse counseling. Smoke cessation therapy. The patient to attend ambriz activities. Lipid Profile, HbA1c, Medication Consent with explanation of risk/benefits and side effects: Explained and obtained.
[2024-05-29] MEDS: risperiDONE 0.5 MG TAB PO SCH (21:12)
[2024-05-30] MEDS: NICOTINE GUM (POLACRILEX) 2 MG GUM BUCCAL PRN (13:31)
--- NOTE | 2024-05-30 14:19 | P.PN ---
Progress Note - Text Progress Note Date: 05/30/24 Follow-up Mediation Review Chief Complaint: I am feeling good. Subjective: The patient noted that he has not heard any voices today. He feels fine. The patient noted that after discharge he will go home. He stays with his father. He will resume his job. Risperdal. medications is hearing voices less frequently than before. The patient was calm and pleasant. No other complaints reported. The patient denied any side effects. The patient has been compliant with medications. The patient is attending the groups. The participation is good. The interaction with staff and peers is good. The patient is compliant with treatment recommendations. Leading questions: The patient admitted to mild Depression and Anxiety. Denied SI or HI. Admitted to hearing voices and seeing floaters. Denied paranoia or other delusions. Sleep and Appetite: Fair. Change in family/ living/job/financial/daily routine: No change. Change in medical condition: No change. Change in medications: Added Risperdal 0.5 mg hs. D/C Librium. Side effects from Medications: None. Allergies: No change. Objective- MSE: Alert and attentive. Orientation times three. Dressed and Groomed: Appropriately. Pleasant and cooperative. Psychomotor Activity: Normal. Speech: Normal in tone, quality, and quantity. Mood: Depressed and anxious. Affect: Appropriate to the mood. SI or HI: None. Perceptual disturbance: He hears several voices. The voices talk amongst themselves. Denied command hallucinations. Thought Content: No paranoia or other delusional thinking noted. Thought Process: Normal. Cognition: Intact Judgment and Insight: Fair. AIMS: Normal. Labs: Available labs reviewed. Diagnosis: Schizophreniform disorder Plan and Recommendations: Continue current Medications. Added Risperdal 0.5 mg hs. Melatonin 5 mg po hs. D/C Seroquel. Trazodone 50 mg hs. Monitor MS and side effects of medications and adjust medications accordingly. Provide supportive psychotherapy. The patient provided psychoeducation and advised The patient provided Substance abuse counseling. Smoke cessation therapy. The patient to attend ambriz activities. Medication Consent with explanation of risk/benefits and side effects: Explained and obtained.
--- NOTE | 2024-05-31 10:15 | P.PN ---
Subjective Progress Note Date: 05/31/24 Principal diagnosis: schizophreniform disorder subjective: Patient has been clear voices for a couple of days. He had been using marijuana other drugs slows alcohol which probably contributed to it and is now off of those and he is responding to a tiny dose is on risperidone 0.5 and the Seroquel 25 mg is being used mostly to sedate to help him sleep which she slept well last night. Objective patient looks a little tired but otherwise good self-care he did get up for breakfast and has a almost too healthy appetite. He is oriented cooperative good eye contact good social skills. Assessment as he seems to be doing well on very small dose of medicine my thoughts are that probably most of his symptoms were caused by the substance use. Plan no change in medicine he will need to think carefully about how to stay sober and clean after he leaves so as not to really trigger psychosis. I did tell him that marijuana has been shown to increase the early onset of psychosis and worsens the symptoms Objective - Vital Signs Vital signs: Vital Signs Temp 97.4 F L 05/31/24 05:27 Pulse 69 05/31/24 05:27 Resp 19 05/31/24 05:27 BP 120/71 05/31/24 05:27 Pulse Ox 98 05/31/24 05:27 FiO2
[2024-06-01 07:08] VITALS: BP 109/77; PULSE 108; RESP 16; TEMP 98.1
--- NOTE | 2024-06-01 10:18 | P.PN ---
Subjective Progress Note Date: 06/01/24 Principal diagnosis: schizophreniform disorder subjective: Patient has been clear voices for a couple of days. He had been using marijuana other drugs slows alcohol which probably contributed to it and is now off of those and he is responding to a tiny dose is on risperidone 0.5 and the Seroquel 25 mg is being used mostly to sedate to help him sleep which she slept well last night.he does complain of restlessness. He was sitting there totally calm no psychomotor increase but said insight he was bouncing off the miles. However when I asked him if he was uncomfortable enough that he wanted change anything he said he was fine and did not want to change anything.he says he was on the Seroquel before he came in and so risperidone is new. I tried to assess whether the restlessness was there on the Seroquel but had little trouble finding that out because the voices were bothering so bad. Objective: good self-care he did get up for breakfast and has an, almost too healthy appetite. He is oriented cooperative good eye contact good social skills. Assessment as he seems to be doing well on very small dose of medicine my thoughts are that probably most of his symptoms were caused by the substance use. Plan :no change in medicine. He did not want to change medicines and did not seem that the restlessness was bothersome enough to do so I did point out there were alternative medicine psychotic control the voices without causing restlessness. he will need to think carefully about how to stay sober and clean after he leaves so as not to really trigger psychosis. I did tell him that marijuana has been shown to increase the early onset of psychosis and worsens the symptoms. Objective - Vital Signs Vital signs: Vital Signs Temp 98.1 F 06/01/24 07:07 Pulse 108 H 06/01/24 07:07 Resp 16 06/01/24 07:07 BP 109/77 06/01/24 07:07 Pulse Ox 98 06/01/24 07:07 FiO2
== END 2024-06-03 12:34 | disposition home or self-care (01) | DRG 885 ==
LOC: 3MHU 18:28
PROVIDERS: ADMIT Psychiatry & Neurology Psychiatry; ATTEND Psychiatry & Neurology Psychiatry
DX: F20.81 Schizophreniform disorder (principal); R45.851 Suicidal ideations; Z28.310 Unvaccinated for COVID-19; Z28.21 Immunization not carried out because of patient refusal; F15.11 Other stimulant abuse, in remission; F41.9 Anxiety disorder, unspecified; F32.A Depression, unspecified; F17.200 Nicotine dependence, unspecified, uncomplicated; F19.10 Other psychoactive substance abuse, uncomplicated; R51.9 Headache, unspecified
CPT/HCPCS: 80061; 83036